=== PATIENT | female | born 1955 | race American Indian/Alaskan Native ===

== ENCOUNTER 2018-01-09 11:12 | Emergency (ER) | payer MEDICAID ==
[2018-01-09 11:35] VITALS: BP 137/99
[2018-01-09] MEDS ORDERED: MOTRIN PO ONE (13:37)
[2018-01-09] MEDS ORDERED: CLEOCIN PO ONE (13:37)
--- NOTE | 2018-01-09 13:40 | Emergency Department Report ---
ED Extremity Problem HPI - General Chief complaint: Extremity Injury, Lower Stated complaint: L FOOT PAIN Time Seen by Provider: 01/09/18 13:28 Source: patient Mode of arrival: Ambulatory Limitations: No Limitations - History of Present Illness Initial comments: Patient is a 62-year-old black female states 2 weeks ago she had a hard callus on the bottom of her left foot. Patient heated up a needle and tried to D into the this area. Patient now states that she's had some swelling to the left heel with pain. Patient states as a throbbing sensation 10 out of 10. 7 difficulty bearing weight. Patient denies any purulent drainage. Patient also states is no fever nausea vomiting at this time. - Related Data Previous Rx's Medication Instructions Recorded Last Taken Type Clindamycin [Clindamycin CAP] 300 mg PO Q8H 7 Days cap 01/09/18 Unknown Rx Ibuprofen [Motrin] 600 mg PO Q8H PRN #20 tablet 01/09/18 Unknown Rx traMADol [Ultram] 50 mg PO Q6HR PRN #10 tablet 01/09/18 Unknown Rx Allergies Allergy/AdvReac Type Severity Reaction Status Date / Time No Known Allergies Allergy Unverified 01/09/18 11:31 ED Review of Systems ROS: Stated complaint: L FOOT PAIN Other details as noted in HPI Comment: All other systems reviewed and negative ED Past Medical Hx - Past Medical History Hx Hypertension: Yes Additional medical history: CYST ON OVARY - Surgical History Additional Surgical History: TUIBES TIED - Social History Smoking Status: Current Every Day Smoker Substance Use Type: None - Medications Home Medications: Home Medications Medication Instructions Recorded Confirmed Last Taken Type Clindamycin [Clindamycin CAP] 300 mg PO Q8H 7 Days cap 01/09/18 Unknown Rx Ibuprofen [Motrin] 600 mg PO Q8H PRN #20 tablet 01/09/18 Unknown Rx traMADol [Ultram] 50 mg PO Q6HR PRN #10 tablet 01/09/18 Unknown Rx ED Physical Exam - General Limitations: No Limitations General appearance: alert, in no apparent distress - Head Head exam: Present: atraumatic, normocephalic - Eye Eye exam: Present: normal appearance - ENT ENT exam: Present: mucous membranes moist - Neck Neck exam: Present: normal inspection - Respiratory Respiratory exam: Present: normal lung sounds bilaterally. Absent: respiratory distress - Cardiovascular Cardiovascular Exam: Present: regular rate, normal rhythm. Absent: systolic murmur, diastolic murmur, rubs, gallop - GI/Abdominal GI/Abdominal exam: Present: soft, normal bowel sounds - Extremities Exam Extremities exam: Present: normal inspection, other (patient has some skin sloughing on the left heel. There is some mild erythema and warmth. No areas of fluctuance present.) - Back Exam Back exam: Present: normal inspection - Neurological Exam Neurological exam: Present: alert, oriented X3 - Psychiatric Psychiatric exam: Present: normal affect, normal mood - Skin Skin exam: Present: warm, dry, intact, normal color. Absent: rash ED Course Vital Signs 01/09/18 11:32 Temperature 98 F Pulse Rate 90 Respiratory 16 Rate Blood Pressure 137/99 O2 Sat by Pulse 99 Oximetry ED Medical Decision Making - Medical Decision Making Patient appears to have a mild cellulitis to the left heel. Patient will be started on antibiotics and meds for symptomatic relief will be discharged home. Critical care attestation.: If time is entered above; I have spent that time in minutes in the direct care of this critically ill patient, excluding procedure time. ED Disposition Clinical Impression: Cellulitis of foot Disposition: DC-01 TO HOME OR SELFCARE Is pt being admited?: No Does the pt Need Aspirin: No Condition: Stable Instructions: Cellulitis (ED) Referrals: WESLY REIS MD [Primary Care Provider] - 3-5 Days
[2018-01-09] MEDS ORDERED: CLEOCIN ONE (13:55)
[2018-01-09] MEDS ORDERED: MOTRIN ONE (14:04)
== END 2018-01-09 14:18 | disposition home or self-care (01) ==
LOC: ED 11:12
DX: L03.116 Cellulitis of left lower limb (principal); I10 Essential (primary) hypertension; F17.200 Nicotine dependence, unspecified, uncomplicated
CPT/HCPCS: 99282

== ENCOUNTER 2019-05-17 08:52 | Outpatient (CLI) | payer MEDICAID ==
--- NOTE | 2019-05-17 12:33 | Ultrasound Report ---
ULTRASOUND PELVIS COMPLETE ULTRASOUND TRANSVAGINAL INDICATION / CLINICAL INFORMATION: N83.9 NONINFLAMMATORY DISORDER OF OVARY FALLOPIAN TUBE AND BROAD . TECHNIQUE: Transabdominal and Transvaginal. Duplex Color Doppler used: Yes. COMPARISON: None available FINDINGS: UTERUS: Present. - Appearance (if present): The uterus is anteverted. - Size in cm (if present): 6.9 x 1.6 x 3.5. - Endometrial Complex (if present): No significant abnormality.. Thickness in cm (if measured) = 0.3 - Mass lesions: A well-circumscribed 1.1 cm noncalcified uterine fibroid is noted in the uterine fund us. Focal calcifications measuring less than 1 cm are identified in the anterior wall and posterior w all which probably represent small calcified uterine fibroids. - Additional findings: None. RIGHT ADNEXA: The right ovary is not visualized. No abnormality in the right adnexa is appreciated. LEFT ADNEXA: No significant ovarian cyst or mass. Normal color Doppler blood flow. 1.3 x 1.1 x 0.9 cm . URINARY BLADDER: No significant abnormality. FREE FLUID: None. ADDITIONAL FINDINGS: None. IMPRESSION: Mild uterine fibroid disease as described. The right ovary is obscured. The left ovary is unremarkable. Signer Name: Kirit Matute Jr, MD Signed: 05/17/2019 12:29 PM Workstation Name: [id number]
--- NOTE | 2019-05-18 08:48 | Mammography Report ---
DIGITAL SCREENING MAMMOGRAM WITH CAD, 05/17/2019 INDICATION: Routine screening mammography. TECHNIQUE: Digital bilateral 2D mammography was obtained in the craniocaudal and mediolateral obliq ue projections. This examination was interpreted with the benefit of Computer-Aided Detection analysi s. COMPARISON: None available. FINDINGS: Breast Density: There are scattered areas of fibroglandular density. A right retroareolar focal asymmetry requires additional imaging. No architectural distortion or susp icious calcifications. There is no evidence of dominant mass, suspicious calcifications or architectu ral distortion in the left breast. IMPRESSION: Right asymmetry requiring additional imaging. Recommend recall for right spot magnificati on views and right breast ultrasound if needed. Follow up recommendation: Special View: Mag Category 0: Incomplete. Needs additional imaging evaluation and/or prior mammograms for comparison. A "normal" or negative report should not discourage follow up or biopsy of a clinically significant f inding. A written summary of these findings will be mailed to the patient. The patient will be entered into a mammography reporting system which will generate a reminder letter for the patient's next appointmen t at the appropriate interval. The [employer] recommends yearly mammograms starting at age 40 and continuing as l lucas as a woman is in good health. Breast MRI is recommended for women with an approximate 20-25% or greater lifetime risk of breast cancer, including women with a strong family history of breast or ova gabe cancer or who have been treated for Hodgkin's disease. Signer Name: Sudarshan Jefferson MD Signed: 05/18/2019 8:44 AM Workstation Name: [id number]
== END 2019-05-17 08:53 | disposition home or self-care (01) ==
LOC: MAMMO 08:52
PROVIDERS: ATTEND Internal Medicine
DX: Z12.31 Encounter for screening mammogram for malignant neoplasm of breast (principal); D25.9 Leiomyoma of uterus, unspecified; I10 Essential (primary) hypertension; F17.200 Nicotine dependence, unspecified, uncomplicated
CPT/HCPCS: 76830; 76856; 77067

== ENCOUNTER 2019-05-21 09:30 | Outpatient (CLI) | payer MEDICAID ==
[2019-05-21 10:07] LABS: Bacteria,Urine 1+ /HPF (Negative); Bilirubin,Urine NEG (Negative); Blood,Urine NEG (Negative); Color,Urine Yellow (Yellow); Mucus,Urine FEW /HPF; Protein,Urine <15 mg/dL mg/dL (Negative); Urobilinogen,Urine < 2.0 mg/dL (<2.0)
[2019-05-21 10:08] LABS: Basophils % (Auto) 0.4 % (0.0-1.8); Eosinophils # (Auto) 0.2 K/mm3 (0.0-0.4); Eosinophils % (Auto) 2.1 % (0.0-4.3); Hematocrit 42.3 % (30.3-42.9); Hemoglobin 13.9 gm/dl (10.1-14.3); Lymphocytes # (Auto) 2.8 K/mm3 (1.2-5.4); Lymphocytes % (Auto) 36.1 % (13.4-35.0); Mean Corpuscular HGB Conc 33 % (30-34); Mean Corpuscular Volume 88 fl (79-97); Monocytes # (Auto) 0.4 K/mm3 (0.0-0.8); Monocytes % (Auto) 4.7 % (0.0-7.3); Platelet Count 247 K/mm3 (140-440); Red Blood Count 4.81 M/mm3 (3.65-5.03); Red Cell Distribution Width 15.5 % (13.2-15.2)
[2019-05-21 10:38] LABS: Alanine Aminotransferase 14 units/L (7-56); Albumin 4.3 g/dL (3.9-5); BUN/Creatinine Ratio 13; Blood Urea Nitrogen 9 mg/dL (7-17); Calcium 9.3 mg/dL (8.4-10.2); Hemolysis Index 1; LDL Cholesterol,Direct 104 mg/dL (50-130)
[2019-05-21 10:57] LABS: Chol/HDL Ratio 1.99 %; HDL Cholesterol 101 mg/dL (40-59)
[2019-05-26 13:41] LABS: Vitamin D, 25-OH, D2 <4 ng/mL
== END 2019-05-21 09:31 | disposition home or self-care (01) ==
LOC: LAB 09:30
PROVIDERS: ATTEND Internal Medicine
DX: Z00.00 Encounter for general adult medical examination without abnormal findings (principal); Z13.21 Encounter for screening for nutritional disorder; Z13.220 Encounter for screening for lipoid disorders; Z13.29 Encounter for screening for other suspected endocrine disorder; N39.0 Urinary tract infection, site not specified; I10 Essential (primary) hypertension; F17.200 Nicotine dependence, unspecified, uncomplicated
CPT/HCPCS: 36415; 80053; 80061; 81001; 82306; 82607; 83036; 84443; 85025

== ENCOUNTER 2019-06-14 09:07 | Outpatient (CLI) | payer MEDICAID ==
--- NOTE | 2019-06-14 11:21 | Mammography Report ---
RIGHT DIGITAL DIAGNOSTIC MAMMOGRAM WITH CAD 06/14/2019 RIGHT LIMITED BREAST ULTRASOUND INDICATION: Recall to evaluate a retroareolar asymmetry. TECHNIQUE: Digital right mammographic imaging was performed. Magnification views were obtained. This examination was interpreted with the benefit of Computer-Aided Detection (CAD) analysis. COMPARISON: 05/17/2019 FINDINGS: Breast Density: There are scattered areas of fibroglandular density. MAMMOGRAPHIC FINDINGS: Partial effacement of the retroareolar asymmetry on spot magnification views. It also persists on a lateral view. ULTRASOUND FINDINGS: Targeted ultrasound evaluation was performed of the area of interest. Ultrasou nd of the retroareolar right breast demonstrated mild duct ectasia but no mass, cyst or suspicious sh adowing. IMPRESSION: A probably benign mammographic asymmetry with a negative ultrasound. Follow up recommendation: Short term follow up in 6 months. BI-RADS Category 6: Known Biopsy-Proven Malignancy. A "normal" or negative report should not discourage follow up or biopsy of a clinically significant f inding. A written summary of these findings will be mailed to the patient. The patient will be entered into a mammography reporting system which will generate a reminder letter for the patient's next appointmen t at the appropriate interval. According to the [employer], yearly mammograms are recommended starting at age 40 and continuing as long as a woman is in good health. Breast MRI is recommended for women with an yenni roximately 20-25% or greater lifetime risk of breast cancer, including women with a strong family his tory of breast or ovarian cancer and women who have been treated for Hodgkin's disease. Signer Name: Sudarshan Jefferson MD Signed: 06/14/2019 11:17 AM Workstation Name: [id number]
== END 2019-06-14 09:08 | disposition home or self-care (01) ==
LOC: MAMMO 09:07
PROVIDERS: ATTEND Internal Medicine
DX: R92.8 Other abnormal and inconclusive findings on diagnostic imaging of breast (principal)

== ENCOUNTER 2019-07-28 08:20 | Observation (INO) | payer MEDICAID ==
[2019-07-27 12:25] LABS: Basophils % (Auto) 0.2 % (0.0-1.8); Eosinophils # (Auto) 0.1 K/mm3 (0.0-0.4); Eosinophils % (Auto) 0.7 % (0.0-4.3); Hematocrit 41.8 % (30.3-42.9); Lymphocytes # (Auto) 3.1 K/mm3 (1.2-5.4); Lymphocytes % (Auto) 36.9 % (13.4-35.0); Mean Corpuscular HGB Conc 34 % (30-34); Mean Corpuscular Volume 88 fl (79-97); Monocytes # (Auto) 0.5 K/mm3 (0.0-0.8); Monocytes % (Auto) 5.4 % (0.0-7.3); Platelet Count 241 K/mm3 (140-440); Red Blood Count 4.78 M/mm3 (3.65-5.03); Red Cell Distribution Width 15.4 % (13.2-15.2)
--- NOTE | 2019-07-27 12:31 | Anesthesia Consultation ---
Anesthesia Consult and Med Hx Date of service: 07/27/19 - Airway Anesthetic Teeth Evaluation: Dentures ROM Head & Neck: Adequate Mental/Hyoid Distance: Adequate Mallampati Class: Class II Intubation Access Assessment: Good - Pulmonary Exam CTA: Yes - Cardiac Exam Cardiac Exam: RRR - Pre-Operative Health Status ASA Pre-Surgery Classification: ASA3 Proposed Anesthetic Plan: General Nerve Block: TAP - Pulmonary Hx Smoking: Yes - Cardiovascular System Hx Hypertension: Yes - Central Nervous System Hx Psychiatric Problems: No - Endocrine Hx Non-Insulin Dependent Diabetes: Yes - Other Systems Hx Cancer: No
[2019-07-27 12:43] LABS: Alanine Aminotransferase 10 units/L (7-56); Albumin 4.3 g/dL (3.9-5); BUN/Creatinine Ratio 13; Blood Urea Nitrogen 8 mg/dL (7-17); Calcium 9.6 mg/dL (8.4-10.2); Hemolysis Index 47
--- NOTE | 2019-07-28 07:30 | History and Physical Report ---
History of Present Illness Date of examination: 07/28/19 Date of admission: 07/28/2019 Chief complaint: Chronic pelvic pain History of present illness: 64-year-old presents with a history of uterine fibroids and worsening chronic pelvic pain. The patient states that she has daily debilitating pelvic pain. She notes that her symptoms have been worsening over the last 6 months. The patient denies any current vaginal bleeding. She has elected to undergo definitive surgical management. 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 Social history: single, smoking - Obstetrical History : 6 Para: 4 Hx # Term Pregnancies: 2 Number of Pregnancies: 2 Spontaneous Abortions: 2 Induced : 0 Number of Living Children: 4 Medications and Allergies Allergies Allergy/AdvReac Type Severity Reaction Status Date / Time No Known Allergies Allergy Unverified 07/20/19 12:33 Home Medications Medication Instructions Recorded Confirmed Last Taken Type Albuterol Sulfate [Proventil Hfa] 2 puff IH Q4H PRN 07/27/19 07/27/19 Unknown History Lovastatin [Altoprev] 40 mg PO HS 07/27/19 07/27/19 Unknown History Meloxicam [Mobic] 15 mg PO DAILY 07/27/19 07/27/19 Unknown History Moxifloxacin HCl [Vigamox 0.5%] 1 drop OP Q8HR 07/27/19 07/27/19 Unknown History Nepafenac [Ilevro 0.3%] 1 drop OP QDAY 07/27/19 07/27/19 Unknown History RX: Cyclobenzaprine HCl [Flexeril 5 mg PO HS 07/27/19 07/27/19 Unknown History 5 MG TAB] RX: lisinopriL [Zestril TAB] 10 mg PO DAILY 07/27/19 07/27/19 Unknown History RX: metFORMIN [Glucophage] 500 mg PO DAILY 07/27/19 07/27/19 Unknown History Active Meds: Active Medications Fentanyl (Sublimaze) 100 mcg IV ONCE NR Stop: 07/28/19 23:59 Gabapentin (Gabapentin) 600 mg PO PREOP NR Stop: 07/28/19 23:59 Lactated Ringer's (Lactated Ringers) 1,000 mls @ 100 mls/hr IV DIRECT TRINITY Review of Systems All systems: negative Genitourinary: pelvic pain - Vital Signs Vital signs: Vital Signs Temp Pulse Resp BP Pulse Ox 97.4 F L 94 H 20 153/97 100 07/27/19 11:30 07/27/19 11:30 07/27/19 11:30 07/27/19 11:30 07/27/19 11:30 Temp Pulse Resp BP Pulse Ox 97.4 F L 94 H 20 153/97 100 07/27/19 11:30 07/27/19 11:30 07/27/19 11:30 07/27/19 11:30 07/27/19 11:30 - Physical Exam Breasts: Positive: deferred Cardiovascular: Regular rate Lungs: Positive: Clear to auscultation Abdomen: Positive: normal appearance Results Result Diagrams: 07/27/19 11:35 07/27/19 11:35 Abnormal lab results 07/27/19 07/27/19 Range/Units 11:35 11:35 RDW 15.4 H (13.2-15.2) % Lymph % (Auto) 36.9 H (13.4-35.0) % Creatinine 0.6 L (0.7-1.2) mg/dL Glucose 101 H (65-100) mg/dL All other labs normal. Assessment and Plan - Patient Problems (1) Chronic pelvic pain in female Status: Acute Plan to address problem: The patient is scheduled to undergo robotic hysterectomy and bilateral salpingo- oophorectomy (2) Leiomyoma Status: Acute
[~2019-07-28 08:20] MED LIST: CELECOXIB 200 MG CAP PO NR; FAMOTIDINE 20 MG TAB PO NR; GABAPENTIN 300 MG CAP PO NR; LACTATED RINGERS 1,000 ML IV SCH; MIDAZOLAM 2 MG/2 ML INJ IV NR; ceFAZolin/Water 2 GM/20 ML 2 GM/20 ML SYRINGE IV NR; fentaNYL 100 MCG/2 ML INJ IV NR
[2019-07-28] MEDS ORDERED: LIDOCAINE (1%) 10 MG/1 ML VIAL 20 ML MDV ONE (08:43)
[2019-07-28] MEDS ORDERED: BUPIVACAINE-EPINEPHRINE/PF 0.25%-1:200,000 (30 ML) VIAL INFILTRATI ONE (08:43)
[2019-07-28] MEDS ORDERED: LACTATED RINGERS 1,000 ML ONE (09:36)
[2019-07-28] MEDS ORDERED: NEOMY 40 MG/POLYMYXIN B 200,000 UNITS/ML (GU) AMPULE IR ONE ×2 (10:12→11:25)
[2019-07-28] MEDS ORDERED: MIDAZOLAM 2 MG/2 ML INJ IV NR (10:15)
[2019-07-28] MEDS ORDERED: MIDAZOLAM 2 MG/2 ML INJ ONE (10:18)
[2019-07-28] MEDS ORDERED: HYDROmorphone 1 MG/1 ML INJ ONE ×2 (10:20→12:58)
[2019-07-28] MEDS ORDERED: propofoL 200 MG/20 ML VIAL IV ONE (10:20)
[2019-07-28] MEDS ORDERED: LIDOCAINE MPF (2%) 20 MG/1 ML VIAL 5 ML ONE (10:26)
[2019-07-28] MEDS ORDERED: SUCCINYLCHOLINE CHLORIDE 200 MG/10 ML INJ MDV ONE (10:26)
[2019-07-28] MEDS ORDERED: ROCURONIUM 50 MG/5 ML INJ IV ONE (10:26)
[2019-07-28] MEDS ORDERED: SODIUM CHLORIDE 0.9% IRRIG SOLN 2000 ML IR ONE (11:25)
[2019-07-28] MEDS ORDERED: SODIUM CHLORIDE 0.9% IRR 1,500 ML BOTTLE IR ONE (11:25)
[2019-07-28] MEDS ORDERED: ACETAMINOPHEN 325 MG TAB PO PRN (11:47)
[2019-07-28] MEDS ORDERED: ZOLPIDEM 5 MG TAB PO PRN (11:47)
[2019-07-28] MEDS ORDERED: ONDANSETRON 4 MG/2 ML INJ IV PRN (11:47)
[2019-07-28] MEDS ORDERED: oxyCODONE /ACETAMINOPHEN 5-325MG TAB PO PRN (11:47)
--- NOTE | 2019-07-28 11:47 | Operative Report ---
Operative Report Operative Report: Date of surgery: 07/28/2019 Preoperative diagnoses: Chronic pelvic pain Postoperative diagnoses: Same as above Procedure: Robotic hysterectomy and bilateral salpingo-oophorectomy Surgeon: Olena Cadet M.D. Real Estate Transaction Manager: Judith Amato Anesthesia: Gen. endotracheal anesthesia Estimated blood loss: 50Milliliters Pathology: Uterus, cervix, bilateral tubes and ovaries Indication: 64-year-old with a history of worsening chronic pelvic pain. The patient elected to undergo definitive surgical management. Procedure: The patient was taken to the operating room and given general endotracheal anesthesia without complication. She is prepped and draped in a normal sterile fashion. A bivalve speculum was placed in the patient's vagina and a single- tooth tenaculum placed on the anterior lip of the cervix. The uterus was sounded with the uterine sound. A [employer] uterine manipulator was placed in the bivalve speculum was then removed. Attention was then turned to the patient's abdomen where a 12 millimeter supra umbilical skin incision was then made. A Veress needle was placed and peritoneal entry was verified water-filled syringe. Insufflation of the peritoneal cavity was performed with CO2 gas. The 12 mm trocar was then placed under direct visualization. An additional 8 mm trocar was placed on the patient's left and right lateral side just opposite of the supraumbilical trocar. An additional 5 mm right lateral trocar was then placed as the accessory port. The Wilber Childers device was used to close the fascia of the 12 mm incision. The patient was then placed in steep Trendelenburg. The da Leonardo robot was then engaged. A fenestrated forcep was placed in arm 2 and a vessel sealer was placed in arm 1. The surgeon then transferred to the surgical console. Gen. survey revealed normal uterus tubes and ovaries. The infundibulopelvic ligament was then isolated on the right. The vessel sealer was used to coagulate the ligament which was then transected. The tube and ovary were transected from the supply. The round ligament was then coagulated a nd transected also. The vesicouterine peritoneum was then entered from the patient's right side. The uterine vessels were then coagulated with the vessel sealer. The vessels were then transected . Attention was then turned to the patient's left side where the infundibulopelvic ligament and mesosalpinx were again isolated coagulated and transected. The vesical peritoneum was then entered from the left and joined in the midline. Peritoneum was reflected off of the lower uterine segment. Uterine vessels were then coagulated and then transected. The blood supply to the uterus was adequately contained, a posterior colpotomy was made. The V care ring was visualized. Posterior colpotomy was created with the monopolar scissors. The incision was continued circumferentially until anterior colpotomy was made. The cervix and uterus were amputated from the vaginal cuff. The uterus was then removed along with the tubes and ovaries bilaterally through the vagina and a warm laparotomy sponge was placed and maintain the pneumoperitoneum. The vaginal cuff was then closed in a running fashion with V lock suture. Irrigation of the pelvis was performed. Hemoblast was applied to the incision. The skin was then reapproximated with 4-0 Monocryl. The tissue was sent to pathology which included the cervix, uterus, tubes and ovaries. The patient was then successfully extubated. She was then taken to the recovery room in stable condition. All sponge laps and needle counts were correct x2.
[2019-07-28] MEDS ORDERED: GLYCOPYRROLATE 0.4 MG/2 ML INJ ONE (11:50)
[2019-07-28] MEDS ORDERED: NEOSTIGMINE 10MG/10 ML INJ MDV ONE (11:50)
[2019-07-28] MEDS ORDERED: ONDANSETRON 4 MG/2 ML INJ ONE (11:50)
[2019-07-28] MEDS ORDERED: KETOROLAC 30 MG/1 ML INJ ONE (11:50)
[2019-07-28] MEDS ORDERED: METOPROLOL TARTRATE 5 MG/5 ML INJ IV ONE ×3 (12:24→12:45)
[2019-07-28] MEDS ORDERED: fentaNYL 100 MCG/2 ML INJ ONE (12:33)
[2019-07-28] MEDS ORDERED: fentaNYL 100 MCG/2 ML INJ IV ONE (12:34)
[2019-07-28] MEDS: HYDROmorphone 1 MG/1 ML INJ IV PRN ×2 (12:58→16:28)
[2019-07-28] MEDS ORDERED: hydrALAZINE 20 MG/1 ML INJ ONE (13:06)
[2019-07-28] MEDS ORDERED: hydrALAZINE 20 MG/1 ML INJ IV ONE (13:10)
[2019-07-28] MEDS: D5W/LACTATED RINGERS 1,000 ML IV SCH ×2 (14:10→20:55)
[2019-07-28] MEDS: MORPHINE 2 MG/1 ML INJ IV PRN ×2 (14:16→20:56)
--- NOTE | 2019-07-28 14:50 | Anesthesia Day of Surgery ---
Anesthesia Day of Surgery - Day of Surgery Patient Examined: Yes Patient H&P Reviewed: Yes Patient is NPO: Yes Beta Blockers: No Cardiac Clearance: No (n/a) Pulmonary Clearance: No (n/a) Mil's Test: N/A
[2019-07-28] MEDS: KETOROLAC 30 MG/1 ML INJ IV SCH ×2 (18:30→23:54)
[2019-07-28] MEDS ORDERED: ALBUTEROL 2.5 MG/3 ML NEBU IH PRN (19:30)
[2019-07-28] MEDS: LISINOPRIL 10 MG TAB PO SCH (21:43)
[2019-07-29] MEDS: IBUPROFEN 600 MG TAB PO SCH ×2 (00:15→07:12)
[2019-07-29] MEDS: MORPHINE 2 MG/1 ML INJ IV PRN (03:39)
[2019-07-29] MEDS: KETOROLAC 30 MG/1 ML INJ IV SCH ×2 (06:00→11:41)
[2019-07-29 06:15] LABS: Hematocrit 36.5 % (30.3-42.9); Hemoglobin 12.2 gm/dl (10.1-14.3)
--- NOTE | 2019-07-29 08:18 | Progress Note ---
Assessment and Plan - Patient Problems (1) Chronic pelvic pain in female Current Visit: No Status: Acute Plan to address problem: patient doing well discharge home (2) Leiomyoma Current Visit: No Status: Acute Subjective - Subjective Date of service: 07/29/19 Interval history: Patient without any significant complaints. Tolerated clear diet. Patient reports: appetite normal, pain well controlled Objective - Vital Signs Latest vital signs: Vital Signs Temp Pulse Pulse Resp Resp BP BP 07/29/19 06:04 20 07/29/19 06:00 20 07/29/19 05:52 98.5 F 91 H 20 128/81 07/29/19 03:39 20 07/29/19 01:26 99.4 F 94 H 18 120/76 07/28/19 23:54 20 07/28/19 21:43 90 144/86 07/28/19 21:20 82 20 07/28/19 20:56 20 07/28/19 20:20 07/28/19 19:30 98.4 F 82 20 147/84 07/28/19 18:30 97.9 F 80 24 150/93 07/28/19 16:58 20 07/28/19 16:36 98.2 F 80 18 114/82 07/28/19 16:28 20 07/28/19 14:16 18 07/28/19 13:45 97.2 F L 87 20 152/95 07/28/19 13:30 79 12 148/96 07/28/19 13:15 71 12 154/105 07/28/19 13:05 68 157/107 07/28/19 13:00 97.7 F 69 12 157/107 07/28/19 12:45 71 12 172/110 07/28/19 12:30 76 14 182/110 07/28/19 12:25 96 H 14 190/118 07/28/19 12:20 96 H 14 190/118 07/28/19 12:13 98.9 F 102 H 12 190/108 07/28/19 10:22 86 16 150/89 07/28/19 10:17 83 30 H 152/99 07/28/19 10:12 82 24 153/99 07/28/19 08:40 98.4 F 96 H 16 134/91 Pulse Ox 07/29/19 06:04 07/29/19 06:00 07/29/19 05:52 98 07/29/19 03:39 07/29/19 01:26 98 07/28/19 23:54 07/28/19 21:43 07/28/19 21:20 07/28/19 20:56 07/28/19 20:20 99 07/28/19 19:30 100 07/28/19 18:30 100 07/28/19 16:58 07/28/19 16:36 07/28/19 16:28 07/28/19 14:16 07/28/19 13:45 96 07/28/19 13:30 97 07/28/19 13:15 97 07/28/19 13:05 07/28/19 13:00 97 07/28/19 12:45 98 07/28/19 12:30 98 07/28/19 12:25 99 07/28/19 12:20 98 07/28/19 12:13 100 07/28/19 10:22 98 07/28/19 10:17 98 07/28/19 10:12 98 07/28/19 08:40 96 Intake and Output 07/28/19 07/29/19 07/29/19 22:59 06:59 14:59 Intake Total 1923.75 480 Output Total 1400 1000 Balance 523.75 -520 Intake: IV 843.75 D5lr 1,000 ml @ 125 mls/ 843.75 hr IV DIRECT [facility]INITY Rx#: [id number] Oral 720 Intake, Free Water 360 480 Output: Urine 1400 1000 Indwelling Catheter 1400 1000 Other: Total, Intake Amount 240 Total, Output Amount 400 1000 - Exam Cardiovascular: Present: Regular rate Abdomen: Present: normal appearance
--- NOTE | 2019-07-29 08:20 | Discharge Summary ---
Providers - Providers Date of Admission: 07/28/19 11:47 Date of discharge: 07/29/19 Attending physician: HERMAN AVINA Primary care physician: JULIEN CORREA Hospitalization Reason for admission: other (chronic pelvic pain) Procedure: other (Robotic hysterectomy/BSO) Incision: normal Discharge diagnosis: other (Chronic pelvic pain) Hospital course: Patient was admitted the day of surgery and underwent a robotic hysterectomy/BSO. See op note. Postop uneventful Condition at discharge: Good Disposition: DC-01 TO HOME OR SELFCARE - Discharge Diagnoses (1) Chronic pelvic pain in female Status: Acute (2) Leiomyoma Status: Acute Plan - Discharge Medications Prescriptions: Docusate Sodium [Colace] 100 mg PO BID PRN #60 capsule PRN Reason: Constipation Ibuprofen [Motrin] 800 mg PO Q8HR PRN #60 tablet PRN Reason: Pain, Mild (1-3) oxyCODONE /ACETAMINOPHEN [Percocet 5/325] 1 tab PO Q6HR PRN #30 tablet PRN Reason: Pain - Provider Discharge Summary Activity: no sex for 6 weeks, no heavy lifting 4 weeks, no strenuous exercise Diet: routine Instructions: routine Additional instructions: [] Smoking cessation referral if applicable(refer to patient education folder for contact #) [] Refer to [facility]'s [facility] Booklet Call your doctor immediately for: * Fever > 100.5 * Heavy vaginal bleeding ( >1 pad per hour) * Severe persistent headache * Shortness of breath * Reddened, hot, painful area to leg or breast * Drainage or odor from incision. * Keep incision clean and dry at all times and follow doctor's instructions r egarding bathing/showering schedule followup in 4 weeks - Follow up plan
[2019-07-29] MEDS: LISINOPRIL 10 MG TAB PO SCH (11:46)
[2019-07-29 12:28] VITALS: BP 114/65
== END 2019-07-29 13:50 | disposition home or self-care (01) ==
LOC: OR 08:20 → OB 11:47
PROVIDERS: ADMIT Obstetrics & Gynecology; ATTEND Obstetrics & Gynecology
DX: R10.2 Pelvic and perineal pain (principal); D25.9 Leiomyoma of uterus, unspecified; J45.909 Unspecified asthma, uncomplicated; E78.00 Pure hypercholesterolemia, unspecified; F17.200 Nicotine dependence, unspecified, uncomplicated; D28.2 Benign neoplasm of uterine tubes and ligaments; Z98.51 Tubal ligation status
CPT/HCPCS: 36415; 58571; 64450; 80053; 82962; 85014; 85018; 85025; 86850; 86900; 86901; 88307; 93005; 93010; 94640; 94760; 96374; 96375; 96376; A4217; G0378; J0330; J0360; J0690; J1170; J1885; J2250; J2270; J2405; J2704; J2710; J3010; J7120; J7121; S2900

== ENCOUNTER 2020-05-10 09:19 | Outpatient (CLI) | payer MEDICAID ==
--- NOTE | 2020-05-10 11:34 | XRay Report ---
RIGHT HIP 2 VIEWS INDICATION: RIGHT HIP PAIN. COMPARISON: None. IMPRESSION: No acute osseous or soft tissue abnormality. Mild osteoarthritic changes are identifi ed at the right hip. No evidence for osteonecrosis. Signer Name: Kirit Matute Jr, MD Signed: 05/10/2020 11:30 AM Workstation Name: [id number]
== END 2020-05-10 09:20 | disposition home or self-care (01) ==
LOC: XRAY 09:19
PROVIDERS: ATTEND Orthopaedic Surgery
DX: M16.11 Unilateral primary osteoarthritis, right hip (principal); M54.5 Low back pain

== ENCOUNTER 2020-05-25 07:11 | Day surgery (SDC) | payer MEDICAID ==
[~2020-05-25 07:11] MED LIST changes: +BUPIVACAINE/PF (0.5%) 5 MG/1 ML 30 ML VIAL INFILTRATI ONE; -CELECOXIB 200 MG CAP PO NR; -FAMOTIDINE 20 MG TAB PO NR; -GABAPENTIN 300 MG CAP PO NR; -LACTATED RINGERS 1,000 ML IV SCH; +LIDOCAINE (1%) 10 MG/1 ML VIAL 20 ML MDV ONE; -MIDAZOLAM 2 MG/2 ML INJ IV NR; -ceFAZolin/Water 2 GM/20 ML 2 GM/20 ML SYRINGE IV NR; -fentaNYL 100 MCG/2 ML INJ IV NR
[2020-05-25 07:42] VITALS: BP 147/84
[2020-05-25] MEDS ORDERED: LIDOCAINE (1%) 10 MG/1 ML VIAL 20 ML MDV INFILTRATI ONE (08:19)
[2020-05-25] MEDS ORDERED: BUPIVACAINE/PF (0.5%) 5 MG/1 ML 30 ML VIAL INFILTRATI ONE (08:19)
--- NOTE | 2020-05-25 08:37 | Procedure Note ---
Date of procedure: 05/25/20 Pre-op diagnosis: right hip pain Post-op diagnosis: same Procedure: Right femoral and obturator nerve block hip joint Procedure The patient was brought to the OR placed on the or table in the supine position next C-arm fluoroscopy was used to establish landmarks around the hip joint following this the right hip and groin area was prepped and draped in a sterile manner a timeout procedure was done to identify the patient and correct operative site. Using the 21-gauge spinal needle a 0 fluoroscopy the anterior lateral portion of the acetabular rim was identified the spinal needle was placed up against the anterior border and 2% Marcaine was injected in the area of the femoral nerve articular branches. Following this a second spinal needle was then placed along the area corresponding to the Ischium on C-arm this area was anesthetized with lidocaine followed by insertion of the 21-gauge spinal needle and it was advanced just lateral to the teardrop on the inferior rim of the acetabulum ball was palpated as well The 2% Marcaine was injected into this location to anesthetize the obturator nerve the spinal needle was then removed pressure was applied over the puncture wound was followed by placement of 2 Band-Aids. The patient tolerated the procedure he was then taken back to the preop holding area where he was discharged to home Anesthesia: local Surgeon: NELI GUTHRIE Estimated blood loss: minimal Pathology: none Condition: stable
--- NOTE | 2020-05-25 16:48 | XRay Report ---
Right hip fluoroscopy INDICATION: Right hip pain IMPRESSION: Several fluoroscopic images of the right hip with injection needle projecting at the leve l just above the superior roof of the acetabulum as well as the far lateral aspect of the right pubic symphysis near the acetabulum more medially. Fluoroscopy time: 11 seconds. Fluoroscopic images: 2. Signer Name: Yadiel Morin MD Signed: 05/25/2020 4:44 PM Workstation Name: [id number]
== END 2020-05-25 08:50 | disposition home or self-care (01) ==
LOC: OR 07:11
PROVIDERS: ATTEND Orthopaedic Surgery
DX: M25.551 Pain in right hip (principal); F17.210 Nicotine dependence, cigarettes, uncomplicated; I10 Essential (primary) hypertension; K21.9 Gastro-esophageal reflux disease without esophagitis; M19.90 Unspecified osteoarthritis, unspecified site; E11.9 Type 2 diabetes mellitus without complications; Z79.899 Other long term (current) drug therapy; Z98.41 Cataract extraction status, right eye; Z98.42 Cataract extraction status, left eye; Z98.51 Tubal ligation status; Z98.890 Other specified postprocedural states

== ENCOUNTER 2021-03-30 09:58 | Outpatient (CLI) | payer MEDICARE ==
[2021-03-30 10:54] LABS: Basophils % (Auto) 0.3 % (0.0-1.8); Eosinophils # (Auto) 0.1 K/mm3 (0.0-0.4); Eosinophils % (Auto) 1.3 % (0.0-4.3); Hematocrit 43.3 % (30.3-42.9); Hemoglobin 14.3 gm/dl (10.1-14.3); Lymphocytes # (Auto) 2.6 K/mm3 (1.2-5.4); Lymphocytes % (Auto) 31.7 % (13.4-35.0); Mean Corpuscular HGB Conc 33 % (30-34); Mean Corpuscular Volume 87 fl (79-97); Monocytes # (Auto) 0.3 K/mm3 (0.0-0.8); Monocytes % (Auto) 4.2 % (0.0-7.3); Platelet Count 373 K/mm3 (140-440); Red Blood Count 4.96 M/mm3 (3.65-5.03); Red Cell Distribution Width 15.1 % (13.2-15.2)
[2021-03-30 10:59] LABS: Alanine Aminotransferase 7 units/L (7-56); Albumin 4.6 g/dL (3.9-5); BUN/Creatinine Ratio 15; Blood Urea Nitrogen 9 mg/dL (7-17); Calcium 9.8 mg/dL (8.4-10.2); Chol/HDL Ratio 2.44 %; HDL Cholesterol 108 mg/dL (40-59); Hemolysis Index 1; LDL Cholesterol,Direct 136 mg/dL (50-130)
[2021-04-04 15:43] LABS: Vitamin D, 25-OH, D2 5 ng/mL
[2021-04-06 09:10] LABS: HIV-1 Antibody Differentiation SEE SCANNED RESULT; HIV-2 Antibody Differentiation SEE SCANNED RESULT
== END 2021-03-30 09:59 | disposition home or self-care (01) ==
LOC: LAB 09:58
PROVIDERS: ATTEND Internal Medicine
DX: Z13.220 Encounter for screening for lipoid disorders (principal); Z13.29 Encounter for screening for other suspected endocrine disorder; Z00.00 Encounter for general adult medical examination without abnormal findings; R73.09 Other abnormal glucose; E55.9 Vitamin D deficiency, unspecified; I10 Essential (primary) hypertension; R06.02 Shortness of breath
CPT/HCPCS: 36415; 80053; 80061; 82306; 83036; 84443; 85025; 86689

== ENCOUNTER 2022-01-03 11:10 | Outpatient (CLI) | payer MEDICARE ==
[2022-01-03 12:32] LABS: Basophils % (Auto) 0.2 % (0.0-1.8); Eosinophils # (Auto) 0.1 K/mm3 (0.0-0.4); Eosinophils % (Auto) 1.5 % (0.0-4.3); Hematocrit 41.6 % (30.3-42.9); Hemoglobin 13.8 gm/dl (10.1-14.3); Lymphocytes % (Auto) 30.4 % (13.4-35.0); Mean Corpuscular HGB Conc 33 % (30-34); Mean Corpuscular Volume 90 fl (79-97); Monocytes # (Auto) 0.4 K/mm3 (0.0-0.8); Monocytes % (Auto) 4.2 % (0.0-7.3); Platelet Count 309 K/mm3 (140-440); Red Blood Count 4.65 M/mm3 (3.65-5.03); Red Cell Distribution Width 14.6 % (13.2-15.2)
[2022-01-03 13:42] LABS: Alanine Aminotransferase 9 units/L (7-56); Albumin 4.4 g/dL (3.9-5); Blood Urea Nitrogen 10 mg/dL (7-17); Calcium 9.6 mg/dL (8.4-10.2); Chol/HDL Ratio 2.24 %; HDL Cholesterol 94 mg/dL (40-59); Hemolysis Index 9; LDL Cholesterol,Direct 111 mg/dL (50-130)
[2022-01-03 13:56] LABS: BUN/Creatinine Ratio 17
== END 2022-01-03 11:11 | disposition home or self-care (01) ==
LOC: LABHHL 11:10
PROVIDERS: ATTEND Internal Medicine
DX: I10 Essential (primary) hypertension (principal); R73.09 Other abnormal glucose; E55.9 Vitamin D deficiency, unspecified; R63.4 Abnormal weight loss; R53.83 Other fatigue; Z00.00 Encounter for general adult medical examination without abnormal findings
CPT/HCPCS: 36415; 80053; 80061; 82306; 83036; 84443; 85025